=== PATIENT | female | born 1975 | race Two or more races ===

== ENCOUNTER 2017-09-28 09:57 | Outpatient (CLI) | payer OTHER | END 2017-09-28 10:03 | disposition home or self-care (01) | LOC: LAB 09:57 | DX: R10.9 Unspecified abdominal pain (principal); E10.65 Type 1 diabetes mellitus with hyperglycemia ==

== ENCOUNTER → 2017-09-28 | Outpatient (CLI) | payer OTHER ==
[~2017-09-28] MED LIST: DICLOFENAC POTA50 MG PO; GLIMEPIRIDE4 MG PO; GLUCOPHAGE XR500 MG PO; GLUCOPHAGE XR750 MG PO; HUMALOG100 U/ML; LANTUS100 U/ML; ULTRACET PO
== END | disposition home or self-care (01) ==
LOC: SONOGRAMA 11:23
DX: R10.9 Unspecified abdominal pain (principal)

== ENCOUNTER → 2017-09-28 | Outpatient (CLI) | payer OTHER ==
[~2017-09-28] VITALS: Ht 152.4 cm; Wt 165.6 kg
== END | disposition home or self-care (01) ==
LOC: PPHC 08:23
DX: R10.84 Generalized abdominal pain (principal)

== ENCOUNTER 2018-03-05 13:53 | Outpatient (CLI) | payer OTHER | END 2018-03-05 13:58 | disposition home or self-care (01) | LOC: LAB 13:53 | DX: Z11.3 Encounter for screening for infections with a predominantly sexual mode of transmission (principal) ==

== ENCOUNTER 2018-05-13 01:16 | Emergency (ER) | payer OTHER ==
[~2018-05-13] VITALS: Ht 160 cm; Wt 165.1 kg
== END 2018-05-13 04:23 | disposition home or self-care (01) ==
LOC: ER 01:16
DX: R00.0 Tachycardia, unspecified (principal); E11.9 Type 2 diabetes mellitus without complications

== ENCOUNTER 2018-05-15 09:54 | Emergency (ER) | payer OTHER ==
[~2018-05-15] VITALS: Ht 160 cm; Wt 165.1 kg
== END 2018-05-15 12:26 | disposition home or self-care (01) ==
LOC: ER 09:54
DX: I16.0 Hypertensive urgency (principal); I10 Essential (primary) hypertension

== ENCOUNTER 2018-05-16 11:04 | Outpatient (CLI) | payer OTHER | END 2018-05-16 11:10 | disposition home or self-care (01) | LOC: LAB 11:04 | DX: E11.9 Type 2 diabetes mellitus without complications (principal); R03.0 Elevated blood-pressure reading, without diagnosis of hypertension; Z12.11 Encounter for screening for malignant neoplasm of colon; N92.5 Other specified irregular menstruation ==

== ENCOUNTER 2018-07-20 10:51 | Emergency (ER) | payer OTHER ==
[~2018-07-20] VITALS: Ht 160 cm; Wt 158.8 kg
[2018-07-20] MEDS ORDERED: LOTREL 5-20 MG1 CAP (11:01)
[2018-07-20] MEDS ORDERED: LOSARTAN-HCTZ1 EAC2 PO (11:02)
== END 2018-07-20 18:49 | disposition home or self-care (01) ==
LOC: ER 10:51
DX: E11.65 Type 2 diabetes mellitus with hyperglycemia (principal)

== ENCOUNTER 2018-08-22 10:05 | Outpatient (CLI) | payer OTHER ==
[~2018-08-22 10:05] MED LIST changes: +LOSARTAN-HCTZ1 EAC2 PO; +LOTREL 5-20 MG1 CAP
== END 2018-08-22 17:48 | disposition home or self-care (01) ==
LOC: LAB 10:05
DX: I10 Essential (primary) hypertension (principal); M54.5 Low back pain; Z01.810 Encounter for preprocedural cardiovascular examination; E11.51 Type 2 diabetes mellitus with diabetic peripheral angiopathy without gangrene; E55.9 Vitamin D deficiency, unspecified; E11.9 Type 2 diabetes mellitus without complications; E66.8 Other obesity; K21.9 Gastro-esophageal reflux disease without esophagitis; E11.42 Type 2 diabetes mellitus with diabetic polyneuropathy; F41.8 Other specified anxiety disorders; E03.8 Other specified hypothyroidism; E78.89 Other lipoprotein metabolism disorders; M89.8X8 Other specified disorders of bone, other site; G62.89 Other specified polyneuropathies

== ENCOUNTER → 2018-09-18 | Emergency (ER) | payer OTHER ==
[~2018-09-18] VITALS: Ht 162.6 cm; Wt 136.1 kg
== END | disposition home or self-care (01) ==
LOC: ER 15:43
DX: I10 Essential (primary) hypertension (principal); E11.65 Type 2 diabetes mellitus with hyperglycemia; J22 Unspecified acute lower respiratory infection

== ENCOUNTER 2018-11-29 10:14 | Outpatient (CLI) | payer OTHER | END 2018-11-29 10:19 | disposition home or self-care (01) | LOC: RAD 10:14 | DX: M54.2 Cervicalgia (principal); M25.511 Pain in right shoulder ==

== ENCOUNTER → 2018-11-29 | Outpatient (CLI) | payer OTHER | END | disposition home or self-care (01) | LOC: LAB 09:45 | DX: E66.3 Overweight (principal); R01.1 Cardiac murmur, unspecified; Z13.228 Encounter for screening for other metabolic disorders ==

== ENCOUNTER 2019-05-20 11:09 | Outpatient (CLI) | payer OTHER | END 2019-05-20 11:22 | disposition home or self-care (01) | LOC: LAB 11:09 | DX: E11.65 Type 2 diabetes mellitus with hyperglycemia (principal); E66.3 Overweight; Z12.4 Encounter for screening for malignant neoplasm of cervix; Z12.11 Encounter for screening for malignant neoplasm of colon; Z00.00 Encounter for general adult medical examination without abnormal findings; Z13.6 Encounter for screening for cardiovascular disorders ==

== ENCOUNTER 2019-11-12 11:42 | Emergency (ER) | payer OTHER ==
[~2019-11-12] VITALS: Ht 160 cm; Wt 156.5 kg
== END 2019-11-12 18:31 | disposition home or self-care (01) ==
LOC: ER 11:42
DX: B34.9 Viral infection, unspecified (principal)

== ENCOUNTER → 2020-03-06 11:35 | Outpatient (CLI) | payer OTHER | END | disposition home or self-care (01) | LOC: LAB 11:35 | PROVIDERS: ATTEND General Practice | DX: N92.5 Other specified irregular menstruation (principal); Z12.11 Encounter for screening for malignant neoplasm of colon; Z00.8 Encounter for other general examination; I10 Essential (primary) hypertension; E10.65 Type 1 diabetes mellitus with hyperglycemia ==

== ENCOUNTER → 2020-03-06 | Emergency (ER) | payer OTHER ==
[~2020-03-06] VITALS: Ht 160 cm; Wt 161.0 kg
[~2020-03-06] MED LIST changes: +COZAAR25 MG
== END | disposition left against medical advice (07) ==
LOC: ER 02:29
DX: Z53.21 Procedure and treatment not carried out due to patient leaving prior to being seen by health care provider (principal)

== ENCOUNTER 2020-03-19 07:28 | Emergency (ER) | payer OTHER ==
[~2020-03-19] VITALS: Ht 160 cm; Wt 161.5 kg
[~2020-03-19 07:28] MED LIST changes: -COZAAR25 MG
[2020-03-19] MEDS ORDERED: COZAAR25 MG (07:42)
== END 2020-03-19 12:04 | disposition home or self-care (01) ==
LOC: ER 07:28
DX: I16.0 Hypertensive urgency (principal); I10 Essential (primary) hypertension; R53.1 Weakness; Z03.818 Encounter for observation for suspected exposure to other biological agents ruled out

== ENCOUNTER → 2020-04-15 15:18 | Outpatient (CLI) | payer OTHER ==
[~2020-04-15 15:18] MED LIST changes: +COZAAR25 MG
== END | disposition home or self-care (01) ==
LOC: CERTIFICAD 15:18
PROVIDERS: ATTEND General Practice
DX: Z11.1 Encounter for screening for respiratory tuberculosis (principal)

== ENCOUNTER → 2020-06-02 15:00 | Outpatient (CLI) | payer OTHER | END | disposition home or self-care (01) | LOC: PPH VACUNA 15:00 | DX: Z23 Encounter for immunization (principal) ==

== ENCOUNTER 2020-06-10 12:05 | Outpatient (CLI) | payer OTHER | END 2020-06-10 12:10 | disposition home or self-care (01) | LOC: LAB 12:05 | PROVIDERS: ATTEND Internal Medicine Cardiovascular Disease | DX: I10 Essential (primary) hypertension (principal); E11.9 Type 2 diabetes mellitus without complications; E03.8 Other specified hypothyroidism; E78.2 Mixed hyperlipidemia; E55.9 Vitamin D deficiency, unspecified ==

== ENCOUNTER 2020-06-19 14:52 | Outpatient (CLI) | payer OTHER | END 2020-06-19 15:12 | disposition home or self-care (01) | LOC: MAMO-SONO 14:52 | PROVIDERS: ATTEND Internal Medicine Cardiovascular Disease | DX: Z12.31 Encounter for screening mammogram for malignant neoplasm of breast (principal); N63.11 Unspecified lump in the right breast, upper outer quadrant ==

== ENCOUNTER 2020-10-02 09:18 | Outpatient (CLI) | payer OTHER | END 2020-10-02 09:29 | disposition HB | LOC: SONOGRAMA 09:18 | DX: R10.84 Generalized abdominal pain (principal); K76.0 Fatty (change of) liver, not elsewhere classified; R09.02 Hypoxemia ==

== ENCOUNTER 2020-10-02 10:34 | Outpatient (CLI) | payer OTHER | END 2020-10-02 10:41 | disposition home or self-care (01) | LOC: LAB 10:34 | DX: E03.8 Other specified hypothyroidism (principal); D46.4 Refractory anemia, unspecified; E54 Ascorbic acid deficiency; D51.8 Other vitamin B12 deficiency anemias; B96.81 Helicobacter pylori [H. pylori] as the cause of diseases classified elsewhere; G47.33 Obstructive sleep apnea (adult) (pediatric) ==

== ENCOUNTER → 2020-12-15 06:33 | Outpatient (CLI) | payer OTHER | END | disposition home or self-care (01) | LOC: LAB 06:33 | PROVIDERS: ATTEND Internal Medicine Cardiovascular Disease | DX: I50.42 Chronic combined systolic (congestive) and diastolic (congestive) heart failure (principal); I20.8 Other forms of angina pectoris; Z01.810 Encounter for preprocedural cardiovascular examination; E66.01 Morbid (severe) obesity due to excess calories; R00.2 Palpitations; E08.59 Diabetes mellitus due to underlying condition with other circulatory complications ==

== ENCOUNTER 2021-01-20 11:21 | Outpatient (CLI) | payer OTHER | END 2021-01-20 11:27 | disposition home or self-care (01) | LOC: LAB 11:21 | PROVIDERS: ATTEND Internal Medicine Cardiovascular Disease | DX: I50.42 Chronic combined systolic (congestive) and diastolic (congestive) heart failure (principal); I20.8 Other forms of angina pectoris; Z01.810 Encounter for preprocedural cardiovascular examination; E66.01 Morbid (severe) obesity due to excess calories; R00.2 Palpitations; E08.59 Diabetes mellitus due to underlying condition with other circulatory complications ==

== ENCOUNTER → 2021-04-09 13:21 | Outpatient (CLI) | payer OTHER | END | disposition home or self-care (01) | LOC: LAB 13:21 | PROVIDERS: ATTEND Internal Medicine Cardiovascular Disease | DX: R00.2 Palpitations (principal); I50.42 Chronic combined systolic (congestive) and diastolic (congestive) heart failure; I20.8 Other forms of angina pectoris; Z01.810 Encounter for preprocedural cardiovascular examination; E66.01 Morbid (severe) obesity due to excess calories; E08.59 Diabetes mellitus due to underlying condition with other circulatory complications ==

== ENCOUNTER → 2021-06-07 06:10 | Outpatient (CLI) | payer OTHER | END | disposition home or self-care (01) | LOC: LAB 06:10 | PROVIDERS: ATTEND Internal Medicine | DX: D64.89 Other specified anemias (principal); E03.8 Other specified hypothyroidism; R10.84 Generalized abdominal pain; E78.49 Other hyperlipidemia; R80.8 Other proteinuria; R73.09 Other abnormal glucose ==

== ENCOUNTER 2021-06-07 08:00 | Outpatient (CLI) | payer OTHER | END 2021-06-07 08:30 | disposition home or self-care (01) | LOC: PPH VACUNA 08:00 | PROVIDERS: ATTEND Emergency Medicine Pediatric Emergency Medicine | DX: Z23 Encounter for immunization (principal) ==

== ENCOUNTER 2021-07-15 17:49 | Emergency (ER) | payer OTHER ==
[~2021-07-15] VITALS: Ht 152.4 cm; Wt 162.8 kg
[2021-07-15] MEDS ORDERED: HYZAAR 100-12.1 EACH PO (18:11)
[2021-07-15] MEDS ORDERED: GLIMEPIRIDE4 MG (18:11)
== END 2021-07-15 22:28 | disposition home or self-care (01) ==
LOC: ER 17:49
DX: R19.7 Diarrhea, unspecified (principal)

== ENCOUNTER 2022-06-01 13:39 | Outpatient (CLI) | payer OTHER ==
[~2022-06-01 13:39] MED LIST changes: +GLIMEPIRIDE4 MG; +HYZAAR 100-12.1 EACH PO
== END 2022-06-01 13:44 | disposition home or self-care (01) ==
LOC: PPH VACUNA 13:39
PROVIDERS: ATTEND Emergency Medicine Pediatric Emergency Medicine
DX: Z23 Encounter for immunization (principal)

== ENCOUNTER 2022-11-14 08:15 | Outpatient (CLI) | payer OTHER | END 2022-11-14 16:00 | disposition home or self-care (01) | LOC: LAB 08:15 | PROVIDERS: ATTEND Internal Medicine Cardiovascular Disease | DX: J32.9 Chronic sinusitis, unspecified (principal); I10 Essential (primary) hypertension; E11.9 Type 2 diabetes mellitus without complications; E03.9 Hypothyroidism, unspecified; E78.2 Mixed hyperlipidemia; E55.9 Vitamin D deficiency, unspecified ==

== ENCOUNTER 2022-12-16 17:42 | Inpatient (IN) | payer OTHER ==
[~2022-12-16] VITALS: Ht 160 cm; Wt 113.4 kg
--- NOTE | 2022-12-16 18:21 | NUR ---
SE RECIBE PTE ALERTA Y ORIENTADA X3. REFIERE SUDORACION, PALPITACIONES ACELERADAS Y DOLOR DE IBAN. SE REALIZA EKG Y SE PRESENTA A DR. HERRERA. SE TRASLADA PARA K7
--- NOTE | 2022-12-16 18:37 | NUR ---
SE ORIENTA PTE SOBRE TX A SEGUIR, EL CUAL REFIERE ENTENDER. SE CONECTA A MONITOR CARDIACO Y OXIMETRIA DE PULSO CONTINUA. SE COLECTAN MUESTRAS Y SE CANALIZA PTE UTILIZANDO MEDIDAS ASEPTICAS. SE ADM. MEDICAMENTOS HAYDE ORDEN MEDICA.
== END 2022-12-19 13:03 | disposition home or self-care (01) | DRG 309 ==
LOC: ER 17:42 → MEDI 21:15
PROVIDERS: ADMIT Internal Medicine; ATTEND Internal Medicine
PROC: 4A12X4Z Monitoring of Cardiac Electrical Activity, External Approach (ICD-10-PCS; principal; 2022-12-16)
PROC: B246ZZZ Ultrasonography of Right and Left Heart (ICD-10-PCS; 2022-12-16)
PROC: 3E0F7SF Introduction of Other Gas into Respiratory Tract, Via Natural or Artificial Opening (ICD-10-PCS; 2022-12-16)
DX: I47.1 Supraventricular tachycardia (principal); Z68.41 Body mass index [BMI] 40.0-44.9, adult; I48.91 Unspecified atrial fibrillation; I10 Essential (primary) hypertension; G47.33 Obstructive sleep apnea (adult) (pediatric); E66.01 Morbid (severe) obesity due to excess calories; E11.9 Type 2 diabetes mellitus without complications; Z20.822 Contact with and (suspected) exposure to COVID-19; Z79.4 Long term (current) use of insulin

== ENCOUNTER 2023-05-11 08:08 | Outpatient (CLI) | payer OTHER | END 2023-05-11 08:12 | disposition home or self-care (01) | LOC: LAB 08:08 | PROVIDERS: ATTEND Obstetrics & Gynecology | DX: N95.1 Menopausal and female climacteric states (principal); E07.89 Other specified disorders of thyroid; D60.9 Acquired pure red cell aplasia, unspecified ==

== ENCOUNTER 2023-10-18 08:25 | Emergency (ER) | payer OTHER ==
[~2023-10-18] VITALS: Ht 160 cm; Wt 113.4 kg
[2023-10-18] MEDS ORDERED: METOPROLOL TARTRATE 5MG/5ML AMPUL IV STA (09:40)
[2023-10-18 10:19] LABS: HEMATOCRIT 37.7 % (36.0-45.00); HEMOGLOBIN 12.5 g/dL (12.0-15.00); MEAN CELL VOLUME 80.9 fL (80.00-100.00); MEAN CORPUSCULAR HEMOGLOBIN 26.8 pg (27.00-32.0); MEAN CORPUSCULAR HGB CONC 33.1 g/dl (32.0-36.0); PLATELET COUNT 247 K/uL (150-450); RED BLOOD COUNT 4.65 M/uL (4.00-6.00); RED CELL DISTRIBUTION WIDTH 14.7 % (11.5-14.5)
[2023-10-18 10:34] LABS: CALCIUM 8.6 mg/dL (8.5-10.1); CREATININE SERUM 0.8 mg/dL (0.55-1.02); GFR 75.92; POTASSIUM 3.82 mEq/L (3.5-5.1)
== END 2023-10-18 11:16 | disposition home or self-care (01) ==
LOC: ER 08:25
PROVIDERS: General Practice
DX: R00.2 Palpitations (principal); I10 Essential (primary) hypertension

== ENCOUNTER 2024-03-08 09:53 | Emergency (ER) | payer OTHER ==
[~2024-03-08] VITALS: Ht 160 cm; Wt 127.0 kg
[2024-03-08] MEDS ORDERED: CARVEDILOL3.125 MG (10:13)
[2024-03-08] MEDS ORDERED: METOPROLOL TARTRATE 5MG/5ML AMPUL IV STA (11:02)
[2024-03-08 11:14] LABS: HEMATOCRIT 37.9 % (36.0-45.00); HEMOGLOBIN 12.6 g/dL (12.0-15.00); MEAN CELL VOLUME 81.9 fL (80.00-100.00); MEAN CORPUSCULAR HEMOGLOBIN 27.2 pg (27.00-32.0); MEAN CORPUSCULAR HGB CONC 33.3 g/dl (32.0-36.0); PLATELET COUNT 232 K/uL (150-450); RED BLOOD COUNT 4.63 M/uL (4.00-6.00); RED CELL DISTRIBUTION WIDTH 14.1 % (11.5-14.5)
[2024-03-08] MEDS ORDERED: METOPROLOL TARTRATE 5MG/5ML AMPUL IV ONE (11:24)
[2024-03-08 11:50] LABS: INR 1.01; PARTIAL THROMBOPLASTIN TIME 31.3 SECONDS (22.0-34.0); PROTHROMBIN TIME 10.6 SECONDS (9.0-11.5)
[2024-03-08 11:53] LABS: ALBUMIN 3.3 gm/dL (3.4-5.0); BILIRUBIN TOTAL 0.31 mg/dL (0.3-1.2); CALCIUM 9.1 mg/dL (8.5-10.1); CREATININE SERUM 1.16 mg/dL (0.55-1.02); GFR 49.45; GLOBULINA 4.8 G/DL (2.4-3.5); POTASSIUM 4.44 mEq/L (3.5-5.1); TOTAL PROTEIN 8.1 gm/dL (6.4-8.2)
== END 2024-03-08 18:01 | disposition home or self-care (01) ==
LOC: ER 09:54
PROVIDERS: General Practice
DX: R00.2 Palpitations (principal); Z20.822 Contact with and (suspected) exposure to COVID-19; I10 Essential (primary) hypertension

== ENCOUNTER 2024-03-13 11:40 | Outpatient (CLI) | payer OTHER ==
[~2024-03-13 11:40] MED LIST changes: +CARVEDILOL3.125 MG
== END 2024-03-13 11:41 | disposition home or self-care (01) ==
LOC: NUCLEAR 11:40
PROVIDERS: ATTEND Internal Medicine
DX: I11.9 Hypertensive heart disease without heart failure (principal); E34.0 Carcinoid syndrome

== ENCOUNTER 2024-07-09 01:30 | Outpatient (CLI) | payer OTHER | END 2024-07-09 02:00 | disposition home or self-care (01) | LOC: PPH VACUNA 01:30 | PROVIDERS: ATTEND Emergency Medicine Pediatric Emergency Medicine | DX: Z23 Encounter for immunization (principal) ==

== ENCOUNTER 2024-09-13 13:42 | Outpatient (CLI) | payer OTHER ==
[2024-09-19 18:08] LABS: VARICELLA ZOSTER VIRUS IGM < 0.91 index (0.00-0.90)
== END 2024-09-13 13:45 | disposition home or self-care (01) ==
LOC: LAB 13:42
PROVIDERS: ATTEND Pediatrics
DX: B19.10 Unspecified viral hepatitis B without hepatic coma (principal)

== ENCOUNTER 2024-09-13 14:43 | Outpatient (CLI) | payer OTHER | END 2024-09-13 15:36 | disposition home or self-care (01) | LOC: LAB 14:43 | PROVIDERS: ATTEND Preventive Medicine Occupational Medicine | DX: B19.10 Unspecified viral hepatitis B without hepatic coma (principal) ==

== ENCOUNTER 2024-09-30 14:00 | Outpatient (CLI) | payer OTHER | END 2024-09-30 16:41 | disposition home or self-care (01) | LOC: LAB 14:00 | PROVIDERS: ATTEND Pediatrics | DX: B18.1 Chronic viral hepatitis B without delta-agent (principal); B18.2 Chronic viral hepatitis C ==

== ENCOUNTER 2024-10-22 08:25 | Outpatient (CLI) | payer OTHER ==
[~2024-10-22 08:25] MED LIST changes: -BUDESONIDE 0.5 MG/2 ML AMPUL.NEB IH ONE; -BUDESONIDE 0.5 MG/2 ML AMPUL.NEB IH STA; -HYDROCODONE/CHLORPHEN P-STIREX 5 ML ML PO STA; -LEVALBUTEROL HCL 1.25 MG/3 ML SOLUTION IH ONE; -LEVALBUTEROL HCL 1.25 MG/3 ML SOLUTION IH STA; -METHYLPREDNISOLONE SOD SUCC 125 MG VIAL IV STA; -METHYLPREDNISOLONE SOD SUCC 125 MG VIAL ONE
[2024-10-22 08:54] LABS: HEMATOCRIT 33.4 % (36.0-45.00); MEAN CELL VOLUME 79.9 fL (80.00-100.00); MEAN CORPUSCULAR HEMOGLOBIN 26.3 pg (27.00-32.0); PLATELET COUNT 200 K/uL (150-450); RED BLOOD COUNT 4.19 M/uL (4.00-6.00); RED CELL DISTRIBUTION WIDTH 14.8 % (11.5-14.5)
[2024-10-22 09:54] LABS: MYCOPLASMA PNEUMONIAE IGM NON REACTIVE (NO REACTIVE)
== END 2024-10-22 17:28 | disposition home or self-care (01) ==
LOC: LAB 08:25
PROVIDERS: ATTEND Internal Medicine
DX: U07.1 COVID-19 (principal)

== ENCOUNTER → 2024-10-22 | Emergency (ER) | payer OTHER ==
[~2024-10-22] VITALS: Ht 160 cm; Wt 127.0 kg
[~2024-10-22] MED LIST changes: +BUDESONIDE 0.5 MG/2 ML AMPUL.NEB IH ONE; +BUDESONIDE 0.5 MG/2 ML AMPUL.NEB IH STA; +HYDROCODONE/CHLORPHEN P-STIREX 5 ML ML PO STA; +LEVALBUTEROL HCL 1.25 MG/3 ML SOLUTION IH ONE; +LEVALBUTEROL HCL 1.25 MG/3 ML SOLUTION IH STA; +METHYLPREDNISOLONE SOD SUCC 125 MG VIAL IV STA; +METHYLPREDNISOLONE SOD SUCC 125 MG VIAL ONE
[2024-10-22 11:07] LABS: ABG PH 7.412 (7.35-7.45); ABG PO2 84.5 mmHg (80-100); ABG pCO2 42.9 mmHg (35-45); BASE EXCESS 1.8 mmol/l; BICARBONATE 26.7 mmol/l (23-25); SaO2 96.5 %
[2024-10-22 11:29] LABS: allen test SATISFACTORY; o2 21 %; puncture site RADIAL LEFT
[2024-10-22 12:23] LABS: CALCIUM 8.7 mg/dL (8.5-10.1); CREATININE SERUM 0.76 mg/dL (0.55-1.02); GFR 80.23; POTASSIUM 4.72 mEq/L (3.5-5.1)
== END | disposition home or self-care (01) ==
LOC: ER 08:48
PROVIDERS: General Practice
DX: J45.909 Unspecified asthma, uncomplicated (principal); Z91.018 Allergy to other foods; I10 Essential (primary) hypertension

== ENCOUNTER 2025-01-01 06:34 | Outpatient (CLI) | payer OTHER ==
[2025-01-01 07:27] LABS: HEMATOCRIT 35.1 % (36.0-45.00); HEMOGLOBIN 11.7 g/dL (12.0-15.00); MEAN CELL VOLUME 78.1 fL (80.00-100.00); MEAN CORPUSCULAR HGB CONC 33.3 g/dl (32.0-36.0); PLATELET COUNT 230 K/uL (150-450); RED BLOOD COUNT 4.49 M/uL (4.00-6.00); RED CELL DISTRIBUTION WIDTH 14.6 % (11.5-14.5)
[2025-01-01 08:04] LABS: PH,URINE 6.5 (5.0-8.0); URINE APPEARANCE Turbid; URINE BILIRRUBIN Negative (NEGATIVE); URINE BLOOD Moderate; URINE COLOR Yellow; URINE GLUCOSE Negative (NEGATIVE); URINE KETONE Negative (NEGATIVE); URINE LEUKOCYTE Large; URINE NITRATE Negative; URINE PROTEIN 30 (NEGATIVE)
[2025-01-01 08:13] LABS: URINE BACTERIA 423.4 uL (0.0-1933); URINE EPITHELIAL CELLS 14.7 uL (0.0-38.8)
[2025-01-01 08:16] LABS: ALBUMIN 3.4 gm/dL (3.4-5.0); BILIRUBIN TOTAL 0.47 mg/dL (0.3-1.2); CALCIUM 9.1 mg/dL (8.5-10.1); CHOL HDL RATIO 3.1 (0-5.0); CREATININE SERUM 0.85 mg/dL (0.55-1.02); FREE TRIODOTIRONINE 2.17 pg/ml (2.18-3.98); GFR 70.51; POTASSIUM 4.34 mEq/L (3.5-5.1); T4 TOTAL 10.15 UG/DL (4.8-13.9); TOTAL PROTEIN 7.4 gm/dL (6.4-8.2); TSH 3.59 uIU/mL (0.358-3.74)
[2025-01-01 08:21] LABS: URINE CAST 0.58 uL (0.0-1.40); URINE WBC > 5548.3 uL (0.0-23.2)
== END 2025-01-01 06:39 | disposition home or self-care (01) ==
LOC: LAB 06:34
PROVIDERS: ATTEND Internal Medicine
DX: E55.9 Vitamin D deficiency, unspecified (principal); I11.9 Hypertensive heart disease without heart failure; E78.9 Disorder of lipoprotein metabolism, unspecified; Z12.11 Encounter for screening for malignant neoplasm of colon; Z13.29 Encounter for screening for other suspected endocrine disorder

== ENCOUNTER 2025-02-19 08:05 | Outpatient (CLI) | payer OTHER ==
[2025-02-20 08:49] LABS: ob NEGATIVE (NEGATIVE)
== END 2025-02-19 08:06 | disposition home or self-care (01) ==
LOC: LAB 08:05
PROVIDERS: ATTEND Emergency Medicine Pediatric Emergency Medicine
DX: N39.0 Urinary tract infection, site not specified (principal)

== ENCOUNTER 2025-02-20 06:54 | Outpatient (CLI) | payer OTHER ==
[2025-02-20 08:18] LABS: BASO % 0.2 % (0.1-1.2); EOS # 0.17 (0.04-0.54); EOS % 3.1 % (0.7-7.0); HEMOGLOBIN 11.6 g/dL (11.2-15.7); LYMPH # 1.88 (1.18-3.74); LYMPH % 34.4 % (19.3-53.1); MEAN CORPUSCULAR HEMOGLOBIN 25.8 pg (25.6-32.2); MONO # 0.36 (0.24-0.82); MONO % 6.6 % (4.7-12.5); NEUT # 3.03 (1.56-6.13); NEUT % 55.3 % (34.0-71.1); PLATELET COUNT 239 K/uL (163-369); RED BLOOD COUNT 4.49 M/uL (3.93-5.22); RED CELL DISTRIBUTION WIDTH 14.3 % (11.6-14.4)
[2025-02-20 09:19] LABS: ALBUMIN 3.3 gm/dL (3.4-5.0); BILIRUBIN TOTAL 0.41 mg/dL (0.3-1.2); CALCIUM 9.1 mg/dL (8.5-10.1); CHOL HDL RATIO 3.4 (0-5.0); CREATININE SERUM 0.9 mg/dL (0.55-1.02); FREE TRIODOTIRONINE 1.8 pg/ml (2.18-3.98); GFR 66.01; GLOBULINA 4.3 G/DL (2.4-3.5); POTASSIUM 4.72 mEq/L (3.5-5.1); T4 TOTAL 10.26 UG/DL (4.8-13.9); TOTAL PROTEIN 7.6 gm/dL (6.4-8.2); TSH 1.46 uIU/mL (0.358-3.74)
[2025-02-20 11:22] LABS: PH,URINE 6.5 (5.0-8.0); URINE APPEARANCE Clear; URINE BILIRRUBIN Negative (NEGATIVE); URINE BLOOD Moderate; URINE COLOR Yellow; URINE GLUCOSE Negative (NEGATIVE); URINE KETONE Negative (NEGATIVE); URINE LEUKOCYTE Trace; URINE NITRATE Negative; URINE PROTEIN Negative (NEGATIVE)
[2025-02-20 11:27] LABS: URINE BACTERIA 1056.1 uL (0.0-1933); URINE EPITHELIAL CELLS 33.5 uL (0.0-38.8); URINE RBC 7.5 uL (0.0-20.8); URINE WBC 8.5 uL (0.0-23.2)
[2025-02-20 11:34] LABS: URINE CAST 0.14 uL (0.0-1.40)
== END 2025-02-20 07:40 | disposition home or self-care (01) ==
LOC: LAB 06:54
PROVIDERS: ATTEND Internal Medicine
DX: E55.9 Vitamin D deficiency, unspecified (principal); I11.9 Hypertensive heart disease without heart failure; E78.9 Disorder of lipoprotein metabolism, unspecified; R19.5 Other fecal abnormalities; Z13.29 Encounter for screening for other suspected endocrine disorder

== ENCOUNTER 2025-07-28 07:06 | Outpatient (CLI) | payer OTHER ==
[2025-07-28 08:52] LABS: BASO % 0.6 % (0.1-1.2); EOS # 0.09 (0.04-0.54); EOS % 1.7 % (0.7-7.0); LYMPH # 2.16 (1.18-3.74); LYMPH % 41.5 % (19.3-53.1); MEAN PLATELET VOLUME 9.70 fl (9.4-12.4); MONO # 0.40 (0.24-0.82); MONO % 7.7 % (4.7-12.5); NEUT # 2.52 (1.56-6.13); NEUT % 48.5 % (34.0-71.1); RED CELL DISTRIBUTION WIDTH 13.6 % (11.6-14.4)
[2025-07-28 08:53] LABS: URINE APPEARANCE Clear; URINE BILIRRUBIN Negative (NEGATIVE); URINE BLOOD Negative; URINE COLOR Dark Yellow; URINE GLUCOSE Negative (NEGATIVE); URINE KETONE Trace (NEGATIVE); URINE LEUKOCYTE Negative; URINE NITRATE Negative; URINE PROTEIN 30 (NEGATIVE); URINE UROBILINOGEN 1.0 E.U./dl
[2025-07-28 08:55] LABS: URINE BACTERIA 587.9 uL (0.0-1933); URINE CAST 1.75 uL (0.0-1.40); URINE EPITHELIAL CELLS 65.6 uL (0.0-38.8); URINE RBC 4.1 uL (0.0-20.8); URINE WBC 4.9 uL (0.0-23.2)
[2025-07-28 09:49] LABS: ALT/SGPT 18.0 U/L (12-78); AST/SGOT 15.0 U/L (15-37); BILIRUBIN TOTAL 0.27 mg/dL (0.3-1.2); BUN CREA RATIO 20.0 (7.0-25.0); CHOL HDL RATIO 3.7 (0-5.0); CREATININE SERUM 1.29 mg/dL (0.55-1.02); GFR 43.57; GLOBULINA 4.2 G/DL (2.4-3.5); GLUCOSE FASTING 90.0 mg/dL (65-100); HDL 47.0 mg/dl (40-60); LDL 101.0 mg/dl (0-130); OSMOLALITY SERUM 289.0 MOSM/KG (275-295); VLDL 25.0 (0-39)
[2025-07-28 09:58] LABS: FREE TRIODOTIRONINE 1.97 pg/ml (2.18-3.98); T4 TOTAL 8.97 UG/DL (4.8-13.9); TSH 0.899 uIU/mL (0.358-3.74)
== END 2025-07-28 15:37 | disposition home or self-care (01) ==
LOC: LAB 07:06
PROVIDERS: ATTEND Internal Medicine
DX: E55.9 Vitamin D deficiency, unspecified (principal); I11.9 Hypertensive heart disease without heart failure; E78.9 Disorder of lipoprotein metabolism, unspecified; R19.5 Other fecal abnormalities; Z13.29 Encounter for screening for other suspected endocrine disorder

== ENCOUNTER 2025-08-09 11:35 | Emergency (ER) | payer OTHER ==
[~2025-08-09] VITALS: Ht 160 cm; Wt 113.4 kg
[2025-08-09] MEDS ORDERED: COZAAR50 MG (13:19)
[2025-08-09] MEDS ORDERED: CARVEDILOL12.5 MG (13:20)
[2025-08-09] MEDS ORDERED: FAMOTIDINE/PF 20 MG/2 ML VIAL IV ONE (14:00)
[2025-08-09] MEDS ORDERED: ONDANSETRON HCL 2 MG/ML VIAL IV ONE (14:00)
[2025-08-09] MEDS ORDERED: ACETAMINOPHEN 500 MG GEL..CAP PO ONE (14:00)
[2025-08-09] MEDS ORDERED: 0.9 % SODIUM CHLORIDE 1,000 ML IV ONE (14:00)
[2025-08-09] MEDS ORDERED: GUAIFENESIN 100 MG/5 ML BLIST.PACK PO ONE (14:00)
[2025-08-09 15:32] LABS: INR 1.04
[2025-08-09 15:38] LABS: BASO % 0.5 % (0.1-1.2); EOS # 0.04 (0.04-0.54); EOS % 1.0 % (0.7-7.0); LYMPH # 0.45 (1.18-3.74); LYMPH % 10.7 % (19.3-53.1); MEAN PLATELET VOLUME 10.00 fl (9.4-12.4); MONO # 0.35 (0.24-0.82); MONO % 8.3 % (4.7-12.5); NEUT # 3.33 (1.56-6.13); NEUT % 79.3 % (34.0-71.1); RED CELL DISTRIBUTION WIDTH 14.0 % (11.6-14.4)
[2025-08-09 16:23] LABS: URINE APPEARANCE Clear; URINE BILIRRUBIN Negative (NEGATIVE); URINE BLOOD Negative; URINE COLOR Yellow; URINE GLUCOSE Negative (NEGATIVE); URINE KETONE Negative (NEGATIVE); URINE LEUKOCYTE Negative; URINE NITRATE Negative; URINE PROTEIN Trace (NEGATIVE); URINE UROBILINOGEN 1.0 E.U./dl
[2025-08-09 16:26] LABS: URINE BACTERIA 372.0 uL (0.0-1933); URINE EPITHELIAL CELLS 11.0 uL (0.0-38.8); URINE RBC 3.8 uL (0.0-20.8); URINE WBC 7.3 uL (0.0-23.2)
[2025-08-09 16:31] LABS: URINE CAST 0.00 uL (0.0-1.40)
[2025-08-09 16:41] LABS: COVID-19 AG NEGATIVE (NEGATIVE)
[2025-08-09 17:09] LABS: ALT/SGPT 16.0 U/L (12-78); AST/SGOT 20.0 U/L (15-37); BILIRUBIN TOTAL 0.32 mg/dL (0.3-1.2); BUN CREA RATIO 14.0 (7.0-25.0); CREATININE SERUM 0.94 mg/dL (0.55-1.02); GFR 62.78; GLOBULINA 4.1 G/DL (2.4-3.5); GLUCOSE FASTING 91.0 mg/dL (65-100); OSMOLALITY SERUM 279.0 MOSM/KG (275-295)
[2025-08-09] MEDS ORDERED: OSEL75CA PO (17:24)
[2025-08-09] MEDS ORDERED: OSELTAMIVIR PHOSPHATE 75 MG CAPSULE PO ONE (17:30)
== END 2025-08-09 18:37 | disposition home or self-care (01) ==
LOC: ER 11:35
DX: J10.1 Influenza due to other identified influenza virus with other respiratory manifestations (principal); B34.9 Viral infection, unspecified; Z91.018 Allergy to other foods; Z20.822 Contact with and (suspected) exposure to COVID-19